=== PATIENT | male | born 1945 | race African-American/Black ===

== ENCOUNTER → 2016-05-24 | Outpatient (CLI) | payer OTHER ==
[~2016-05-24] VITALS: Ht 198.1 cm; Wt 97.5 kg
[~2016-05-24] MED LIST: ADVAIR 250/501 DISK IH; ADVAIR HFA120 INHALA IH; AERONEB GO NEB1 EACH MC; ALBUTEROL SULF8.5 GM IH; ALBUTEROL2.5 MG/3 M IH; ATARAX,VISTARIL50 MG PO; ATENOLOL25 MG PO; ATENOLOL50 MG PO; ATORVASTATIN CA10 MG PO; AZITHROMYCIN500 M1 PO; BACTRIM,SEPT1 TABLET PO; CEFDINIR300 MG PO; CIPRO500 MG PO; GUAIFENESIN600 M1 PO; LEVAQUIN500 MG PO; LEVOFLOXACIN750 MG PO; LEXAPRO10 MG PO; LISINOPRIL40 MG PO; LYRICA50 MG PO; NORCO 10/3251 TABLET PO; NORCO 7.5/321 TABLET PO; NORVASC2.5 MG PO; PERCOCET 5/31 TABLET PO; PREDNISONE10 MG PO; PREDNISONE20 MG PO; PREDNISONE5 MG PO; PREDNISONE50 MG PO; PRINIVIL20 MG PO; PROAIR HFA8.5 GM IH; PROVENTIL,2.5 MG/3 M IH; REQUIP1 MG PO; ROPINIROLE HCL1 MG PO; SPIRIVA RESPIMAT4 GM IH; SPIRIVA1 INHALATI IH; SYMBICORT60 INHALAT IH; TAMSULOSIN HCL0.4 MG PO; TENORMIN25 MG PO; TESSALON PERLE100 MG PO; ULTRAM50 MG PO; VENTOLIN HFA18 GM IH; VOLTAREN75 MG PO; XANAX1 MG PO; ZITHROMAX Z-PA250 MG PO; ZITHROMAX250 MG PO
== END | disposition home or self-care (01) ==
LOC: AMB 13:10
PROC: 0DBE8ZZ Excision of Large Intestine, Via Natural or Artificial Opening Endoscopic (ICD-10-PCS; principal; 2016-05-24)
DX: Z08 Encounter for follow-up examination after completed treatment for malignant neoplasm (principal); D12.3 Benign neoplasm of transverse colon; K62.1 Rectal polyp; Z85.038 Personal history of other malignant neoplasm of large intestine; Z90.49 Acquired absence of other specified parts of digestive tract; J44.9 Chronic obstructive pulmonary disease, unspecified; I10 Essential (primary) hypertension; F17.200 Nicotine dependence, unspecified, uncomplicated
CPT/HCPCS: 88305; B4087; J0360

== ENCOUNTER 2017-04-05 07:43 | Emergency (ER) | payer OTHER ==
[~2017-04-05] VITALS: Ht 195.6 cm; Wt 94.3 kg
[2017-04-05 08:53] LABS: HEMATOCRIT 44.3 % (38.0-50.0); MCH 32.1 PG (29.0-34.0); MCHC 34.8 G/DL (30.0-36.0); MCV 92.3 FL (86-99); RBC DIS.WIDTH-SD 48.1 % (39-53); WHITE BLOOD COUNT 7.1 K/uL (4.1-10.2)
[2017-04-05 09:00] LABS: CHLORIDE 109 mEq/L (99-109); POTASSIUM 3.9 mEq/L (3.7-5.4); SODIUM 142 mEq/L (136-147)
[2017-04-05 09:03] LABS: GLUCOSE 95 mg/dL (70-99)
[2017-04-05 09:04] LABS: ANION GAP 9 MEQ/L (2-14)
[2017-04-05 09:05] LABS: TOTAL BILIRUBIN 1.4 mg/dL (0.0-1.0)
[2017-04-05 09:06] LABS: ALKALINE PHOSPHATASE 90 IU/L (3-129)
[2017-04-05 09:07] LABS: GFR ESTIMATE (CALCULATED) > 59 mL/min/ (58.99-99999)
[2017-04-05 09:08] LABS: UREA NITROGEN (BUN) 11 mg/dL (9-23)
[2017-04-05 10:15] LABS: ADD MIUA? YES; BILIRUBIN NEGATIVE; BLOOD NEGATIVE; COLOR YELLOW ((YELLOW)); GLUCOSE (STRIP) NEGATIVE; KETONES 5; LEUKOCYTES NEGATIVE; NITRITE NEGATIVE; PROTEIN (STRIP) 30; SPECIFIC GRAVITY 1.024 (1.000-1.030)
[2017-04-05 10:21] LABS: MEAN PLAT.VOLUME 10.7 uM^3 (9.0-12.4); PLAT.SUFFICIENCY ADEQUATE; PLATELET COUNT 251 K/uL (156-360)
[2017-04-05 10:29] LABS: BACTERIA RARE /HPF; EPITHELIAL CELLS RARE /HPF; HYALINE CASTS 0-5 /LPF; MUCUS 2+ /LPF; RED BLOOD CELLS 0-5 /HPF (0-5); WHITE BLOOD CELLS 0-5 /HPF (0-5)
[2017-04-05] MEDS ORDERED: TESSALON PERLE100 MG PO (10:33)
[2017-04-05] MEDS ORDERED: MOTRIN600 MG PO (10:33)
[2017-04-05] MEDS ORDERED: PROAIR RESPICL90 MCG IH (10:33)
[2017-04-05] MEDS ORDERED: PREDNISONE50 MG PO (10:33)
[2017-04-05] MEDS ORDERED: VIBRAMYCIN100 MG PO (10:33)
[2017-04-05 10:45] VITALS: BP 128/90
== END 2017-04-05 10:45 | disposition home or self-care (01) ==
LOC: EME 07:43
PROVIDERS: Physician Assistant Medical
DX: J20.9 Acute bronchitis, unspecified (principal); J44.0 Chronic obstructive pulmonary disease with (acute) lower respiratory infection; F17.200 Nicotine dependence, unspecified, uncomplicated; Z85.038 Personal history of other malignant neoplasm of large intestine; I10 Essential (primary) hypertension; F32.9 Major depressive disorder, single episode, unspecified; F41.9 Anxiety disorder, unspecified
CPT/HCPCS: 71020; 80053; 81003; 83605; 85027; 87040; 99281; 99283; J1885